=== PATIENT | female | born 1975 | race Caucasian/White ===

== ENCOUNTER 2018-02-28 05:43 | Inpatient (IN) | payer OTHER ==
[2018-02-28] VITALS (8 sets, daily range): BP systolic 111–139; BP diastolic 58–85
[~2018-02-28] VITALS: Ht 152.4 cm; Wt 74.8 kg
[~2018-02-28 05:43] MED LIST: ATENOLOL25 MG PO; GEODON20 MG PO; HEARTBURN RELI150 M1 PO; IRON325 M1 PO; LAMICTAL200 MG PO; LAMOTRIGINE200 MG PO; LEVOTHROID88 MCG PO; LEXAPRO10 MG PO; LORTAB 5-325 M1 EACH PO; MACROBID100 MG PO; NAPROSYN500 MG PO; PRENATAL COMPL1 EACH PO; PRENATAL TABLE1 EAC3 PO; PREVACID30 MG PO; PRISTIQ50 MG PO; PROBIOTIC1 EAC2 PO; PROPRANOLOL HCL20 MG PO; RANITIDINE HCL150 M1 PO; RISPERDAL0.5 MG PO; SYNTHROID100 MCG PO; TIROSINT112 MCG PO; TOPIRAMATE50 MG PO; TYLENOL EXTRA500 MG PO; ZYRTEC10 M2 PO
[2018-02-28 06:39] LABS: AMPHETAMINE NEGATIVE (500 ng/mL); BARBITURATES NEGATIVE (200 ng/mL); BENZODIAZEPINES NEGATIVE (150 ng/mL); BUPRENORPHINE NEGATIVE (10 ng/mL); COCAINE NEGATIVE (150 ng/mL); METHADONE NEGATIVE (200 ng/mL); METHAMPHETAMINE NEGATIVE (500 ng/mL); OPIATES (MORPHINE) NEGATIVE (100 ng/mL); OXYCODONE NEGATIVE (100 ng/mL); PHENCYCLIDINE NEGATIVE (25 ng/mL); PROPOXYPHENE NEGATIVE (300 ng/mL); THC CANNABINOIDS NEGATIVE (50 ng/mL); TRICYCLIC ANTIDEPRESSANTS NEGATIVE (300 ng/mL)
[2018-02-28] MEDS ORDERED: ENDOCET 5-3251 EACH PO (07:33)
[2018-02-28] MEDS ORDERED: IBUPROFEN800 MG PO (07:33)
[2018-02-28] MEDS ORDERED: LEVOTHYROXINE100 MCG PO (21:37)
[2018-03-01 03:08] VITALS: BP 109/60
[2018-03-01 06:51] LABS: BASOPHIL (%) 0.4 % (0-1); EOSINOPHIL (%) 1.8 % (0-5); EOSINOPHIL COUNT 0.1 K/uL (0-0.3); HEMATOCRIT 28.4 % (36.0-46.0); IMMATURE GRANULOCYTE (%) 0.3 % (0.0-0.7); LYMPHOCYTE (%) 28.5 % (15-42); LYMPHOCYTE COUNT 2.1 K/uL (1.0-2.8); MCH 30.4 PG (29.0-34.0); MCHC 33.5 G/DL (30.0-36.0); MCV 90.7 FL (83-99); MONOCYTE (%) 5.7 % (3-12); MONOCYTE COUNT 0.4 K/uL (0-0.8); NEUTROPHIL (%) 63.3 % (45-76); NEUTROPHIL COUNT 4.6 K/uL (1.8-6.4); PLATELET COUNT 159 K/uL (156-360); RBC DIS.WIDTH-CV 13.3 % (11.8-14.6); RBC DIS.WIDTH-SD 43.7 % (39-53); WHITE BLOOD COUNT 7.2 K/uL (4.1-10.2)
[2018-03-01 06:55] LABS: HEMOGLOBIN 9.5 G/DL (11.9-15.5); RED BLOOD COUNT 3.13 M/uL (3.80-5.20)
[2018-03-01 07:19] VITALS: BP 126/76
[2018-03-01 16:06] VITALS: BP 143/86
[2018-03-01 19:00] VITALS: BP 146/78
[2018-03-01 23:01] VITALS: BP 151/83
[2018-03-02 03:00] VITALS: BP 125/89
[2018-03-02 07:49] VITALS: BP 116/73
[2018-03-02 14:12] VITALS: BP 116/70
[2018-03-03 07:56] VITALS: BP 147/81
[2018-03-03 14:59] VITALS: BP 134/79
[2018-03-03 20:33] VITALS: BP 156/88
[2018-03-03 20:40] VITALS: BP 159/84
[2018-03-04 07:19] VITALS: BP 136/89
== END 2018-03-04 14:01 | disposition home or self-care (01) | DRG 765 ==
LOC: 2WEST 05:43 → 2SOUTH 11:57 → 2WEST 03-04 14:01
PROVIDERS: Obstetrics & Gynecology Gynecology
PROC: 10D00Z1 Extraction of Products of Conception, Low, Open Approach (ICD-10-PCS; principal; 2018-02-28)
DX: O99.344 Other mental disorders complicating childbirth (principal); F31.30 Bipolar disorder, current episode depressed, mild or moderate severity, unspecified; D62 Acute posthemorrhagic anemia; O99.413 Diseases of the circulatory system complicating pregnancy, third trimester; O22.43 Hemorrhoids in pregnancy, third trimester; O12.04 Gestational edema, complicating childbirth; Z37.0 Single live birth; Z3A.37 37 weeks gestation of pregnancy; F41.9 Anxiety disorder, unspecified; E03.9 Hypothyroidism, unspecified; I34.1 Nonrheumatic mitral (valve) prolapse; O99.284 Endocrine, nutritional and metabolic diseases complicating childbirth; Z87.891 Personal history of nicotine dependence; O99.02 Anemia complicating childbirth; O34.13 Maternal care for benign tumor of corpus uteri, third trimester
CPT/HCPCS: 36415; 80053; 85025; 86850; 86900; 86901; 88307; J1170; J1200; J1580; J2274; J2405; J2590; J2765; J7050; J7120; S0020